=== PATIENT | male | born 1970 | race Caucasian/White ===

== ENCOUNTER 2019-10-18 09:25 | Emergency (ER) | payer OTHER ==
[2019-10-18] MEDS ORDERED: Lidocaine 1% 20 ML MDV INJECT ONE (09:59)
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
== END 2019-10-18 10:20 | disposition home or self-care (01) ==
LOC: JP.ED 09:25
DX: S01.111A Laceration without foreign body of right eyelid and periocular area, initial encounter (principal); S80.812A Abrasion, left lower leg, initial encounter; S80.811A Abrasion, right lower leg, initial encounter; W25.XXXA Contact with sharp glass, initial encounter
CPT/HCPCS: 12011; 99282; J2001